=== PATIENT | female | born 1960 | race Caucasian/White ===

== ENCOUNTER 2018-06-22 09:08 | Outpatient (CLI) | payer OTHER ==
--- NOTE | 2018-06-25 13:05 | Mammography Report ---
Procedure Date: 06/22/2018 Accession Number: [id number] / [id number] Procedure: MGN - Screening Mammo Dig Bilat CPT Code: FULL RESULT: EXAM: Screening Mammo Dig Bilat DATE: 06/22/2018 9:31 AM CLINICAL HISTORY: 58-year-old female with family history of breast cancer in an aunt at age 60. TECHNIQUE: Bilateral CC, laterally exaggerated CC, MLO views were obtained. COMPARISON: 08/27/2015. FINDINGS: The breasts demonstrate extremely dense parenchyma bilaterally, limiting the sensitivity of mammography. Typically benign bilateral vascular calcifications are identified. No suspicious masses, clustered microcalcifications, or regions of architectural distortion are identified. IMPRESSION: Benign findings RECOMMENDATION: Routine annual screening unless otherwise clinically indicated. BIRADS CATEGORY 2: Benign findings STANDARD QUALIFYING STATEMENTS: 1. This examination was reviewed with the aid of Computer-Aided Detection (CAD). 2. A negative or benign imaging report should not delay biopsy if clinically suspicious findings are present. Consider surgical consultation if warrented. More than 5% of cancers are not identified by imaging. 3. Dense breasts may obscure an underlying neoplasm.
== END 2018-06-22 09:09 | disposition home or self-care (01) ==
LOC: DI.N 09:08
PROVIDERS: ATTEND Family Medicine
DX: Z12.31 Encounter for screening mammogram for malignant neoplasm of breast (principal); Z80.3 Family history of malignant neoplasm of breast
CPT/HCPCS: 77067

== ENCOUNTER 2018-08-12 07:50 | Outpatient (CLI) | payer OTHER ==
--- NOTE | 2018-08-12 17:27 | Ultrasound Report ---
Reason: PAROTID SWELLING Procedure Date: 08/12/2018 Accession Number: [id number] / [id number] Procedure: US - Head or Neck Soft Tissue CPT Code: FULL RESULT: EXAM: NECK ULTRASOUND EXAM DATE: 08/12/2018 08:47 AM. CLINICAL HISTORY: Intermittent left parotid swelling. COMPARISON: None. TECHNIQUE: Real-time sonographic imaging was performed by the patrol police sergeant utilizing color-flow. Multiple strategic partnership representative static images were saved for review. FINDINGS: Normal echotexture of the left parotid gland, which measures 4.5 x 1.1 x 2.5 cm with volume 9.1 cc. Few small intraparotid nodes noted. 1.4 mm shadowing echogenic focus with small surrounding hypoechoic area. IMPRESSION: 1.4 mm intraparotid calcification, nonspecific, could represent a parotid sialolith given history of intermittent left parotid swelling. Consider further evaluation with maxillofacial CT. RADIA
== END 2018-08-12 07:51 | disposition home or self-care (01) ==
LOC: DI 07:50
PROVIDERS: ATTEND Internal Medicine
DX: K11.8 Other diseases of salivary glands (principal)
CPT/HCPCS: 76536

== ENCOUNTER 2021-07-08 08:35 | Outpatient (CLI) | payer OTHER ==
--- NOTE | 2021-07-09 13:39 | Mammography Report ---
BILATERAL DIGITAL SCREENING MAMMOGRAM 3D/2D: 07/08/2021 CLINICAL: Routine screening. Comparison is made to exams dated: 06/22/2018 mammogram and [facility] The tissue of both breasts is extremely dense, which lowers the sensitivity of mammograp hy. No significant masses, calcifications, or other findings are seen in either breast. There has been no significant interval change. IMPRESSION: NEGATIVE There is no mammographic evidence of malignancy. A 1 year screening mammogram is recommended. This exam was interpreted at Station ID: [id number]. NOTE: For mammograms, a report in lay terms will be sent to the patient. Approximately 15% of breast malignancies will not be visualized mammographically. In the management of a palpable breast mass, a negative mammogram must not discourage biopsy of a clinically suspicious lesion. Electronically Signed By: Renaldo Hammonds M.D. aty/penrad:07/08/2021 15:13:10 ACR BI-RADS Category 1: Negative 3341F PARENCHYMAL PATTERN: (VD) - The breast(s) demonstrate(s) extremely dense parenchyma, limiting the sen sitivity of mammography. BI-RADS CATEGORY: (1) - 1 RECOMMENDATION: (ANNUAL) - Recommend routine annual screening mammography. [id number] 1 year screening LATERALITY: (B)
== END 2021-07-08 08:36 | disposition home or self-care (01) ==
LOC: DI 08:35
DX: Z12.31 Encounter for screening mammogram for malignant neoplasm of breast (principal)